=== PATIENT | male | born 1975 | race Caucasian/White ===

== ENCOUNTER → 2016-09-04 | Outpatient (CLI) | payer OTHER ==
--- NOTE | ~2016-09-04 | CT2 ---
[facility] A Service of [facility] RADIOLOGY TEXT RESULTS PATIENT: FABRICE FLORES LOCATION: [facility] : 79 UNIT #: [id number] AGE: [address]: Ariel Ernst MD SEX: M ORDER DR: [id number] [place] [id number] O MR#: [id number] Acc #: [id number] NAME: FABRICE FLORES : 1975 SEX: M STUDY DATE/TIME: 09/04/2016 15:18 UNIT: [facility] ROOM: STUDY DESCRIPTION: CT Abd and Pelv W Cont Attending Physician: Ariel Ernst M.D. Referring Physician: Ariel Ernst M.D. Ordering Physician: Ariel Ernst M.D. Primary Care Physician: Ariel Ernst M.D. MEDICAL IMAGING REPORT This report is preliminary unless electronic signature is present. EXAM CT of the abdomen and pelvis. DATE OF EXAM 09/04/2016 INDICATIONS New onset cholestasis. Abnormal elevated liver enzymes at doctor's office today. Unexplained weight loss. TECHNIQUE Axial images were obtained through the abdomen and pelvis following oral and IV contrast administration. Multiplanar reformats were obtained. NOTE: This CT exam was performed with one or more of the following radiation dose reduction techniques: automatic exposure control, adjustment of mA and/or kV according to patient size, and iterative reconstruction. COMPARISON Comparison made with 09/13/2015. FINDINGS ABDOMEN: The lung bases are clear. The gallbladder has been removed in the interval. There is no biliary obstruction. The liver is enlarged, and there is diffuse hepatic steatosis. No focal liver mass is seen. Mild splenomegaly is present with a craniocaudal [id number] length of 13.5 cm. The remaining solid organs are normal. No free fluid is seen. There is no adenopathy. The GI tract is normal. PELVIS: Urinary bladder is decompressed but grossly normal. The GI tract is normal. IMPRESSION [facility] A Service of [facility] RADIOLOGY TEXT RESULTS PATIENT: FABRICE FLORES LOCATION: [facility] : 79 UNIT #: [id number] AGE: [address]: Ariel Ernst MD SEX: M ORDER DR: 1. Diffuse hepatic steatosis with hepatomegaly. The hepatomegaly is new or progressive since the old scan. There is also mild splenomegaly. No focal lesions are seen. 2. Interval cholecystectomy without biliary obstruction. 3. Normal GI tract. Dictated by... Fabrice De La O Jr., M.D. THIS IS AN ELECTRONICALLY VERIFIED REPORT Fabrice De La O Jr., M.D. at 09/04/2016 9:29 PM JOSE/jessika TD: 09/04/2016 18:38 JOB #: [id number] MEDICAL IMAGING REPORT Page 1 of 1
== END | disposition home or self-care (01) ==
LOC: SCT 13:04
DX: K83.1 Obstruction of bile duct (principal); K76.0 Fatty (change of) liver, not elsewhere classified; Z90.49 Acquired absence of other specified parts of digestive tract
CPT/HCPCS: 74177; Q9967